=== PATIENT | female | born 1980 | race Caucasian/White ===

== ENCOUNTER → 2016-09-21 | Outpatient (CLI) | payer BC ==
[~2016-09-21] MED LIST: IBUP800T25 PO; METF500T PO; PERCOCET PO; PRENAT PO
--- NOTE | 2016-09-21 11:45 | RADRPT ---
PROCEDURE: XR Chest. CLINICAL INDICATION: Acute bronchitis TECHNIQUE: Chest PA and lateral. COMPARISON: 12/10/2011 FINDINGS: The mediastinal structures are unremarkable. The heart is normal in size and configuration. The pu lmonary vascularity is normal. The lung frankel are unremarkable. No consolidation is identified. The pleural spaces are unremarkable. The axial skeleton is unremarkable. IMPRESSION: No active intrathoracic disease. RPTAT: [facility] .Mathieu Ramirez MD, MD Date Time Electronically viewed and signed by .Mathieu Ramirez MD, MD on 09/21/2016 11:45 .B/
== END | disposition home or self-care (01) ==
LOC: RAD 09:52
PROVIDERS: ATTEND Internal Medicine
DX: J20.9 Acute bronchitis, unspecified (principal)
CPT/HCPCS: 71020

== ENCOUNTER → 2016-09-22 | Outpatient (CLI) | payer BC ==
[2016-09-22 07:47] LABS: ADD SCAN DIFF NO
[2016-09-22 07:53] LABS: ABNORMAL IP MESSAGE 1; BASOPHILS % 0.3 % (0.0-2.0); EOSINOPHILS # 0.3 10^3/ul (0.0-0.5); EOSINOPHILS % 4.5 % (0.0-7.0); HEMATOCRIT 33.3 % (37.0-47.0); HEMOGLOBIN 9.6 g/dl (12.0-16.0); LYMPHOCYTES # 1.6 10^3/ul (0.8-2.9); LYMPHOCYTES % 26.9 % (15.0-51.0); MEAN CORPUSCULAR HEMOGLOBIN 18.4 pg (29.0-33.0); MEAN CORPUSCULAR HGB CONC 28.8 g/dl (32.0-37.0); MEAN CORPUSCULAR VOLUME 63.7 fl (82.0-101.0); MEAN PLATELET VOLUME 10.3 fl (7.4-10.4); MONOCYTE # 0.3 10^3/ul (0.3-0.9); MONOCYTES % 4.3 % (0.0-11.0); NEUTROPHIL # 3.8 10^3/ul (1.6-7.5); NEUTROPHILS % 63.7 % (39.0-77.0); PLATELET COUNT 299 10^3/UL (140-415); RED BLOOD COUNT 5.23 10^6/ul (4.20-5.40); RED CELL DISTRIBUTION WIDTH 17.8 % (11.5-14.5)
[2016-09-22 08:31] LABS: ALBUMIN 4.7 g/dl (3.3-4.9); ALBUMIN/GLOBULIN RATIO 1.51; BILIRUBIN,INDIRECT 0.2 mg/dl (0-1.1); BILIRUBIN,TOTAL 0.2 mg/dl (0.2-1.3); CHOL/HDL RATIO 3.1 RATIO; CREATININE 0.55 mg/dl (0.44-1.00); POTASSIUM 4.3 mmol/L (3.5-5.1); TOTAL PROTEIN 7.8 g/dl (6.1-8.1)
== END | disposition home or self-care (01) ==
LOC: LAB 07:26 → EEVIPCON 07:26
PROVIDERS: ATTEND Internal Medicine
DX: J20.9 Acute bronchitis, unspecified (principal); E11.9 Type 2 diabetes mellitus without complications
CPT/HCPCS: 80053; 80061; 83036; 85025

== ENCOUNTER → 2017-05-05 | Outpatient (CLI) | END | disposition home or self-care (01) ==

== ENCOUNTER → 2017-06-04 | Outpatient (CLI) | END | disposition home or self-care (01) ==

== ENCOUNTER → 2017-07-19 | Outpatient (CLI) | END | disposition home or self-care (01) ==

== ENCOUNTER → 2017-10-01 | Outpatient (CLI) | END | disposition home or self-care (01) ==

== ENCOUNTER → 2017-11-08 | Outpatient (CLI) | END | disposition home or self-care (01) ==

== ENCOUNTER → 2017-11-12 | Outpatient (CLI) | END | disposition home or self-care (01) ==

== ENCOUNTER 2018-06-13 08:40 | Emergency (ER) | payer BC ==
[~2018-06-13] VITALS: Ht 167.6 cm; Wt 92.0 kg
[~2018-06-13 08:40] MED LIST changes: +IBUP-1544 PO; -IBUP800T25 PO
[2018-06-13 08:51] VITALS: Ht 167.6 cm; Wt 92.0 kg
[2018-06-13] MEDS ORDERED: ONDANSETRON 4 MG INJ IV STA (09:57)
[2018-06-13] MEDS ORDERED: SOD CHLORIDE 0.9% 920 ML IV ONE (10:00)
[2018-06-13] MEDS ORDERED: morphine 4 MG/ML VIAL IV STA (10:22)
--- NOTE | 2018-06-13 10:31 | ERD ---
ER Documentation Chief Complaint Chief Complaint Complains of avomiting with abdominal pain since last night HPI 37 year-old [female] coming in today with Chief Complaint: abdominal pain History of Present Illness: Patient coming in today with complaint of symptoms of abdominal pain since 8pm last night. Associated symptoms include chills, vomiting. Denies any other associated symptoms. Patient reporting 5 episodes of vomiting since 11 PM last night. Reports using [facility] last night and medication initially helped, then woke up around 2 AM with vomiting/abdominal pain. Last dose of acetaminophen at 4 AM. Denies sick contacts and denies anyone with similar symptoms at home. Review of systems: All systems were reviewed and are negative except for what is indicated in the history of present illness. Past Medical History: Diabetes; ovarian cysts Social History: [Patient denies tobacco, elicit drug use]; alcohol socially Medications: [None] Allergies: [NKDA] Social Concerns: Denies ROS All systems reviewed and are negative except as per history of present illness. Medications Home Meds Active Scripts Ondansetron (Ondansetron Odt) 4 Mg Tab.rapdis, 4 MG PO Q6H PRN for NAUSEA AND/OR VOMITING, #10 TAB 1 pill Q6 hours for nausea, may take 2 pills q6 hours for vomitting Prov:JONATHON CASTRO NP 06/13/18 Tramadol HCl (Tramadol HCl) 50 Mg Tablet, 50 MG PO Q8 PRN for PAIN, #6 TAB Prov:JONATHON CASTRO NP 06/13/18 Naproxen* (Naprosyn*) 500 Mg Tablet, 500 MG PO BID PRN for PAIN AND/OR INFLAMMATION, #30 TAB Prov:JONATHON CASTRO NP 06/13/18 Ibuprofen* (Ibuprofen*) 800 Mg Tab, 800 MG PO Q8, #30 Prov:TRAVIS FAJARDO MD 12/06/14 Oxycodone Hcl/Acetaminophen (Percocet) 1 Tab Tab, 1 TAB PO Q4H PRN for PAIN LEVEL 4-6, #30 TAB Prov:TRAVIS FAJARDO MD 12/06/14 Metformin Hcl (Glucophage) 500 Mg Tab, 500 MG PO WITH BREAKFAST, #30 Prov:TRAVIS FAJARDO MD 12/06/14 Reported Medications Multivit/Min/Fol Ac/Iron/Pren* ( S*) 1 Tab Tab, 1 TAB PO DAILY, TAB 05/04/14 Allergies Allergies: Coded Allergies: No Known Drug Allergy (Verified Allergy, Mild, 08/12/14) PMhx/Soc History of Surgery: Yes (CS x 1) Anesthesia Reaction: No Hx Neurological Disorder: No Hx Respiratory Disorders: No Hx Cardiac Disorders: No Hx Psychiatric Problems: No Hx Miscellaneous Medical Probl: No Hx Alcohol Use: Yes (occasional) Hx Substance Use: No Hx Tobacco Use: No Smoking Status: Never smoker FmHx Family History: diabetes, coronary disease Physical Exam Vitals Vital Signs Date Temp Pulse Resp B/P (MAP) Pulse Ox O2 O2 Flow FiO2 Time Delivery Rate 06/13/18 98.9 95 16 132/77 98 Room Air 12:27 (95) 06/13/18 98.4 98 20 160/75 97 08:51 (103) Physical Exam Const: No acute distress Head: Atraumatic Eyes: Normal Conjunctiva ENT: Normal External Ears, Nose; mucous membranes dry. Neck: Full range of motion. No meningismus. Resp: Clear to auscultation bilaterally Cardio: Regular rate and rhythm, no murmurs Abd: Soft, non distended. Normal bowel sounds. Tender to palpation to left lower quadrant, no grimacing, no guarding. Negative McBurney's point. Negative Dejesus sign. No organomegaly noted during palpation.. Skin: No petechiae or rashes Back: No midline or flank tenderness Ext: No cyanosis, or edema Neur: Awake and alert Psych: Normal Mood and Affect Result Diagram: 06/13/18 1013 06/13/18 1013 Results 24 hrs Laboratory Tests Test 06/13/18 09:56 06/13/18 10:12 06/13/18 10:13 06/13/18 10:15 Bedside Glucose 276 mg/dL Lipase 59 U/L White Blood Count 6.5 10^3/ul Red Blood Count 5.04 10^6/ul Hemoglobin 12.1 g/dl Hematocrit 37.9 % Mean Corpuscular 75.2 fl Volume Mean Corpuscular 24.0 pg Hemoglobin Mean Corpuscular 31.9 g/dl Hemoglobin Concent Red Cell Distribution 13.6 % Width Platelet Count 211 10^3/UL Mean Platelet Volume 11.0 fl Immature Granulocytes 0.500 % % Neutrophils % 84.1 % Lymphocytes % 11.1 % Monocytes % 3.6 % Eosinophils % 0.5 % Basophils % 0.2 % Nucleated Red Blood 0.0 /100WBC Cells % Immature Granulocytes 0.030 10^3/ul # Neutrophils # 5.5 10^3/ul Lymphocytes # 0.7 10^3/ul Monocytes # 0.2 10^3/ul Eosinophils # 0.0 10^3/ul Basophils # 0.0 10^3/ul Nucleated Red Blood 0.0 10^3/ul Cells # Urine Color YELLOW Urine Clarity SLIGHTLY CLOUDY Urine pH 7.0 Urine Specific 1.039 [place] Urine Ketones 2+ mg/dL Urine Nitrite NEGATIVE mg/dL Urine Bilirubin NEGATIVE mg/dL Urine Urobilinogen NEGATIVE mg/dL Urine Leukocyte NEGATIVE Liza/ul Esterase Urine Microscopic RBC 20 /HPF Urine Microscopic WBC 2 /HPF Urine Squamous FEW /HPF Epithelial Cells Urine Hemoglobin NEGATIVE mg/dL Urine Glucose 3+ mg/dL Urine Total Protein NEGATIVE mg/dl Urine Test NEGATIVE Sodium Level 137 mmol/L Potassium Level 3.7 mmol/L Chloride Level 99 mmol/L Carbon Dioxide Level 26 mmol/L Anion Gap 12 Blood Urea Nitrogen 14 mg/dl Creatinine 0.47 mg/dl Est Glomerular > 60 mL/min Filtrat Rate mL/min Glucose Level 291 mg/dl Calcium Level 9.0 mg/dl Phosphorus Level 4.1 mg/dl Magnesium Level 1.7 mg/dl Total Bilirubin 0.7 mg/dl Direct Bilirubin 0.00 mg/dl Indirect Bilirubin 0.7 mg/dl Aspartate Amino 29 IU/L Transf (AST/SGOT) Alanine 33 IU/L Aminotransferase (ALT /SGPT) Alkaline Phosphatase 79 IU/L Total Protein 7.6 g/dl Albumin 4.3 g/dl Globulin 3.30 g/dl Albumin/Globulin 1.30 Ratio POC Beta HCG, NEGATIVE Qualitative Current Medications Medications Dose Sig/Parul Start Time Status Last (Trade) Ordered Route PRN Stop Time Admin Dose Reason Admin Sodium 920 ml @ ONCE ONCE 06/13/18 DC 06/13/18 Chloride 1,000 mls/hr IV 10:00 06/13/18 10:19 10:55 Ondansetron 4 mg ONCE STAT 06/13/18 DC 06/13/18 HCl (Zofran IV 09:57 06/13/18 10:18 Inj) 10:04 Morphine 4 mg ONCE STAT 06/13/18 DC Sulfate IV 10:22 06/13/18 (morphine) 10:23 Ketorolac 30 mg ONCE STAT 06/13/18 DC 06/13/18 Tromethamine IV 11:16 06/13/18 11:36 (Toradol) 11:27 Procedures/MDM ED course includes a thorough examination and history. ED course includes Accu- Chek. Based on Accu-Chek result, will order labs (CBC, CMP, troponin, lipase, magnesium, phosphorus) and IV fluids for patient. Patient reporting she has not ate since yesterday evening, currently has hyperglycemia. ED course includes medication; Zofran for nausea/vomiting and morphine for pain and IV NS. Otherwise healthy patient presenting with constellation of symptoms likely representing uncomplicated viral syndrome; dehydration secondary to hyperglycemia as characterized by history, physical exam findings [lab findings]. Urinalysis negative for infection, positive ketones, elevated specific gravity, positive RBCs. CBC with WNL WBCs, no signs of anemia, elevated neutrophils. CMP, lipase, magnesium, phosphorus; all within normal limits. Anion gap within normal limits and carbon dioxide within normal limits; no sign of diabetic ketoacidosis. Patient reassessment @1220: Patient completed IV NS, reports feeling better. No nausea or vomiting after IV Zofran. Decrease in pain with Toradol. "i really feel better". Abdominal reexamination patient with mild left lower quadrant tenderness, no guarding, no grimacing. Educated patient that if nausea vomiting persists and abdominal pain worsens, return to ER for further evaluation to include possible imaging. Patient tolerating p.o. in ED before discharge. Vital signs stable, no tachycardia or hypotensive. Disposition given. No respiratory distress, otherwise relatively well appearing and nontoxic. Patient educated on diagnoses, prescriptions, follow-up care, return precautions. Strict return precautions given for worsening condition; questions answered discharge. Disposition for discharge with followup in 2-3 days with PCP/clinic. JONATHON CASTRO NP Jun 13, 2018 10:31
[2018-06-13] MEDS ORDERED: KETOROLAC 30 MG INJ IV STA (11:16)
[2018-06-13 12:27] VITALS: BP 132/77; PULSE 95; RESP 16
[2018-06-13] MEDS ORDERED: TRAM50TA2 PO (12:27)
[2018-06-13] MEDS ORDERED: NAPR-985 PO (12:27)
[2018-06-13] MEDS ORDERED: ONDA4TAB14 PO ×2 (12:27→12:29)
== END 2018-06-13 12:55 | disposition home or self-care (01) ==
LOC: FTE 08:40
DX: R10.32 Left lower quadrant pain (principal); R11.2 Nausea with vomiting, unspecified; E11.65 Type 2 diabetes mellitus with hyperglycemia; Z79.84 Long term (current) use of oral hypoglycemic drugs
CPT/HCPCS: 36415; 80053; 81001; 81025; 82962; 83690; 83735; 84100; 84703; 85025; 96361; 96374; 96375; 99284; J1885; J2405; J7030; 81003; J2270

== ENCOUNTER → 2018-12-30 | Outpatient (CLI) | payer BC ==
[~2018-12-30] MED LIST changes: +NAPR-985 PO; +ONDA4TAB14 PO; +TRAM50TA2 PO
== END | disposition home or self-care (01) ==
LOC: LAB 05:37
PROVIDERS: ATTEND Internal Medicine
DX: E78.5 Hyperlipidemia, unspecified (principal); E11.9 Type 2 diabetes mellitus without complications; E03.9 Hypothyroidism, unspecified
CPT/HCPCS: 80053; 80061; 81003; 83036; 84436; 84443; 85025